=== PATIENT | male | born 1985 | race Caucasian/White ===

== ENCOUNTER 2022-09-19 05:16 | Emergency (ER) | payer MEDICAID ==
[~2022-09-19] VITALS: Ht 170.2 cm; Wt 90.0 kg
[2022-09-19 05:39] VITALS: BP 140/86
[2022-09-19] MEDS ORDERED: TOPUD PO (07:13)
[2022-09-19] MEDS ORDERED: ACETAMINOPHEN 325MG TABLET PO ONE (07:45)
== END 2022-09-19 07:38 | disposition home or self-care (01) ==
LOC: ER 05:31
DX: R51.9 Headache, unspecified (principal); M54.2 Cervicalgia; V49.49XA Driver injured in collision with other motor vehicles in traffic accident, initial encounter; Y93.89 Activity, other specified; Y92.488 Other paved roadways as the place of occurrence of the external cause
CPT/HCPCS: 99284